=== PATIENT | male | born 1965 | race Two or more races ===

== ENCOUNTER 2018-07-12 20:16 | Emergency (ER) | payer SELFPAY ==
[~2018-07-12] VITALS: Ht 185.4 cm; Wt 96.5 kg
[2018-07-12 20:18] VITALS: BP 148/105
== END 2018-07-12 21:01 | disposition home or self-care (01) ==
LOC: ED 20:55
DX: B34.9 Viral infection, unspecified (principal); J45.909 Unspecified asthma, uncomplicated
CPT/HCPCS: 99283

== ENCOUNTER 2018-12-24 18:52 | Emergency (ER) | payer BC ==
[~2018-12-24] VITALS: Ht 185.4 cm; Wt 99.7 kg
[2018-12-24 18:58] VITALS: BP 159/89
[2018-12-24] MEDS ORDERED: IBUPROFEN 200 MG TABLET ONE (19:14)
[2018-12-24] MEDS ORDERED: IBUPROFEN 600 MG TABLET PO ONE (19:30)
== END 2018-12-24 19:43 | disposition home or self-care (01) ==
LOC: ED 19:40
DX: G89.11 Acute pain due to trauma (principal); M25.561 Pain in right knee; W50.2XXA Accidental twist by another person, initial encounter; Y93.89 Activity, other specified; Y92.89 Other specified places as the place of occurrence of the external cause; Y99.8 Other external cause status
CPT/HCPCS: 99283